=== PATIENT | male | born 1955 | race Caucasian/White ===

== ENCOUNTER → 2017-02-27 | Day surgery (SDC) | payer OTHER ==
[~2017-02-27] MED LIST: ATOR40TA59 PO; BUPIVAC MPF-EPI 0.5%-1:200000 30 ML VIAL. ONE; CALC600T4 PO; CHOL100013 PO; DEXAMETHASONE SOD PHOS 20 MG/5 ML VIAL. ONE; DICL75TA PO; GLYCOPYRROLATE 1 MG/5 ML VIAL. ONE; IV RINGERS,LACTATED 1000ML 1,000 ML IV SCH; KETOROLAC 30 MG/ML INJ FOR OR. INJ ONE; LIDOCAINE 1% 1 ML SYRINGE. ID PRN; LIDOCAINE 2% PF Vial for OR 5 ML VIAL. ONE; MIDAZOLAM HCL/PF 2 MG/2 ML VIAL. ONE; MULT-208 PO; NEOSTIGMINE 10 MG/10 ML VIAL. ONE; ONDANSETRON PF 4 MG/2 ML VIAL. IV PRN; ONDANSETRON PF 4 MG/2 ML VIAL. ONE; OXYC-327 PO; PROCHLORPERAZINE 10 MG/2 ML VIAL. IV PRN; PROPOFOL 20 ML IV ONE; ROCURONIUM 50 MG/5 ML VIAL. ONE; SERT100T PO; SEVOFLURANE 31 TO 60 MINUTES. IH ONE; SEVOFLURANE 61 TO 120 MINUTES. IH ONE; fentaNYL PF VIAL 100 MCG/2 ML VIAL IV PRN; fentaNYL PF VIAL 100 MCG/2 ML VIAL ONE; oxyCODONE/APAP 7.5/325 1 TAB TABLET PO PRN
--- NOTE | 2017-02-27 10:13 | DISCH ---
DISCHARGE INSTRUCTIONS Condition on Discharge Condition on Discharge: Stable Activity After Discharge Activity Instructions for Disc: Other, see below (no lifting over 20 LBS X 4 weeks) Diet after Discharge Diet after Discharge: Regular Wound Incision Care Wound/Incision Care: Other, see below (keep dressing clean and dry X 72 hours, may then remove and shower) Follow-Up Follow up with: Dr Spencer in 2-3 weeks in office, call for appt [phone] JOON SPENCER MD Feb 27, 2017 10:13
--- NOTE | 2017-02-27 10:18 | PDOC4 ---
Operative Note Operative Note Operative Note: Preoperative Diagnosis: Umbilical hernia Postoperative Diagnosis: Same Procedure: Umbilical hernia repair with mesh Surgeon: Raffaele Gaming Cage Worker: Milly LAGUNA Anesthesia: Gen. EBL: 10 mL Specimen: None Drains: None Complications: None Indication: The patient is a 62-year-old male who is referred due to an umbilical hernia. He was offered surgical repair. The risks of surgery were discussed which include bleeding, infection, recurrence, pain, anesthetic risk, potential need for additional surgery or procedure. He understands and would like to proceed. Description: The patient was taken to the operating room and placed supine on the operating table. Gen. anesthesia was performed. The abdomen was prepped with ChloraPrep and draped in a standard surgical manner. A curved infraumbilical incision was made in the skin with a scalpel. Cautery dissection was carried down to the fascia. The umbilicus was elevated off the fascia exposing a small hernia defect. More superiorly however there appeared to be a separate fascial defect containing some extruded sac and preperitoneal fat. The thin fascial bridge in between was divided creating a single larger hernia defect. Some of the hernia sac and preperitoneal fat was excised and discarded. The edges of the fascial defect were mobilized and delineated. I then developed a preperitoneal using blunt and cautery dissection for planned placement of the mesh. A large Ventralex ST mesh patch was then placed in the preperitoneal space. The mesh rested well and provided good coverage of the fascial defect in all directions. The mesh was then sutured into position using interrupted 0 Prolene stitches placed in a horizontal mattress fashion circumferentially. A total of 8 sutures were used allowing for complete fixation of the mesh. The fascia was closed over the mesh with 0 Prolene. The umbilical tissue was secured back to the fascia with 0 Vicryl. The subcutaneous tissue was closed with interrupted 3-0 Vicryl. The skin was then closed with a 4-0 Monocryl suture. The incision was then infiltrated with half percent Marcaine with epinephrine. Steri-Strips and a sterile dressing were applied. The patient tolerated the procedure well and was sent to the recovery room in stable condition. At the end of the case all counts were correct. JOON SPENCER MD Feb 27, 2017 10:18
[2017-02-27] MEDS: fentaNYL PF VIAL 100 MCG/2 ML VIAL IV PRN ×4 (10:24→11:04)
[2017-02-27 11:40] VITALS: BP 124/70
== END | disposition home or self-care (01) ==
LOC: SURG 07:40
PROVIDERS: ATTEND Surgery
DX: K42.9 Umbilical hernia without obstruction or gangrene (principal); E78.00 Pure hypercholesterolemia, unspecified; M19.90 Unspecified osteoarthritis, unspecified site; F17.200 Nicotine dependence, unspecified, uncomplicated; Z87.39 Personal history of other diseases of the musculoskeletal system and connective tissue; Z96.653 Presence of artificial knee joint, bilateral; Z88.6 Allergy status to analgesic agent
CPT/HCPCS: 49585; J0690; J1100; J1885; J2001; J2250; J2405; J2704; J2710; J3010; J3490; J7120